=== PATIENT | male | born 2005 | race Caucasian/White ===

== ENCOUNTER 2025-08-15 20:27 | Emergency (ER) | payer MEDICAID ==
[~2025-08-15] VITALS: Ht 167.6 cm; Wt 68.1 kg
[2025-08-15 20:52] VITALS: O2SAT 98
[2025-08-15 21:01] VITALS: O2SAT 99
[2025-08-15] MEDS: IBUPROFEN 600MG TABLET PO ONE (22:05)
[2025-08-15] MEDS ORDERED: LIDO700A30 TP (23:16)
[2025-08-15] MEDS ORDERED: IBUP-1455 MT (23:16)
[2025-08-15] MEDS: LIDOCAINE 5% PATCH TOP STA (23:24)
[2025-08-15 23:34] VITALS: BP 121/76; PULSE 78; RESP 17; TEMP 36.8
== END 2025-08-15 23:36 | disposition home or self-care (01) ==
LOC: ER 20:27
DX: M25.571 Pain in right ankle and joints of right foot (principal); M79.604 Pain in right leg; Z79.899 Other long term (current) drug therapy
CPT/HCPCS: 73600; 99283